=== PATIENT | female | born 1960 | race Caucasian/White ===

== ENCOUNTER → 2018-03-23 | Outpatient (CLI) | payer OTHER ==
[2018-03-23 07:48] LABS: ABSOLUTE BASOPHILS 0.1 thou/uL (0.0-0.2); ABSOLUTE EOSINOPHILS 0.6 thou/uL (0.0-0.7); ABSOLUTE LYMPHOCYTES 2.2 thou/uL (0.8-5.3); ABSOLUTE MONOCYTES 0.6 thou/uL (0.0-1.2); ABSOLUTE NEUTROPHILS 4.2 thou/uL (1.6-8.1); BASOPHILS 0.7 %; EOSINOPHILS 7.3 %; HEMATOCRIT 41.3 % (37.0-47.0); HEMOGLOBIN 13.9 gm/dL (12.0-15.0); LYMPHOCYTES 28.7 %; MCH 30.6 pg (26.0-34.0); MCHC 33.6 g/dL (28.0-37.0); MCV 91.2 fL (80.0-100.0); MONOCYTES 7.5 %; MPV 8.5 fl. (7.2-11.1); NUCLEATED RBCS 0 /100WBC; PLATELET COUNT* 220 thou/uL (150-400); POLYS 55.8 %; RBC 4.53 mil/uL (4.20-5.00); RDW-CV 13.3 % (10.5-14.5); WBC 7.6 thou/uL (4.0-11.0)
[2018-03-23 07:57] LABS: ALBUMIN 3.8 g/dL (3.4-5.0); CALCIUM 9.6 mg/dL (8.5-10.1); CREATININE 1.1 mg/dL (0.6-1.3); POTASSIUM 4.1 mmol/L (3.5-5.1); TOTAL BILIRUBIN 0.3 mg/dL (<0.1-1.0); TOTAL PROTEIN 7.5 g/dL (6.4-8.2)
== END ==
LOC: M.LAB 07:26
PROVIDERS: Specialist
DX: Z01.818 Encounter for other preprocedural examination (principal); I10 Essential (primary) hypertension; M06.4 Inflammatory polyarthropathy; M10.00 Idiopathic gout, unspecified site; Z87.898 Personal history of other specified conditions

== ENCOUNTER 2019-12-27 06:09 | Inpatient (IN) | payer OTHER ==
[2019-12-12 10:46] LABS: ABSOLUTE BASOPHILS 0.1 thou/uL (0.0-0.2); ABSOLUTE EOSINOPHILS 0.8 thou/uL (0.0-0.7); ABSOLUTE LYMPHOCYTES 2.5 thou/uL (0.8-5.3); ABSOLUTE MONOCYTES 0.7 thou/uL (0.0-1.2); ABSOLUTE NEUTROPHILS 5.6 thou/uL (1.6-8.1); BASOPHILS 1.3 %; EOSINOPHILS 8.1 %; HEMATOCRIT 41.7 % (37.0-47.0); HEMOGLOBIN 14.4 gm/dL (12.0-15.0); LYMPHOCYTES 25.6 %; MCH 30.7 pg (26.0-34.0); MCHC 34.4 g/dL (28.0-37.0); MCV 89.2 fL (80.0-100.0); MONOCYTES 7.1 %; MPV 8.3 fl. (7.2-11.1); NUCLEATED RBCS 0 /100WBC; PLATELET COUNT* 254 thou/uL (150-400); POLYS 57.9 %; RBC 4.68 mil/uL (4.20-5.00); RDW-CV 13.2 % (10.5-14.5); WBC 9.6 thou/uL (4.0-11.0)
[2019-12-12 10:56] LABS: APTT 25.2 Seconds (25.0-31.3)
[2019-12-12 10:59] LABS: CALCIUM 9.3 mg/dL (8.5-10.1); POTASSIUM 3.8 mmol/L (3.5-5.1); TOTAL BILIRUBIN 0.3 mg/dL (<0.1-1.0); TOTAL PROTEIN 8.1 g/dL (6.4-8.2)
[2019-12-12 11:53] LABS: ESR (SEDRATE) 20 mm/hr (0-30)
[2019-12-12 23:11] LABS: GLYCOHEMOGLOBIN (HGB A1C) 5.7 % (4.8-5.6)
--- NOTE | 2019-12-25 13:43 | EKG ---
[place] [address] ELECTROCARDIOGRAM REPORT Name: QUITNON HALL Room: [facility]#: [id number] Admission: Attend Phys: Jerson Velasco DO Discharge: Date of : 64 Report #: [id number] THIS REPORT FOR: //name// [facility] Test Date: 2019-12-12 Test Time: 09:14:19 Pat Name: QUINTON HALL Department: Room: Gender: F Project Safety Manager: DAYNA : 1960 Requested By: Jerson Velasco Order Number: [id number] Reading MD: Ochoa Villegas Measurements Intervals [place] Rate: 87 P: 46 [place]: 159 QRS: -25 QRSD: 98 T: 59 QT: 374 QTc: 450 Interpretive Statements Sinus rhythm Borderline left axis deviation Low voltage, precordial leads No previous ECG available for comparison Electronically Signed On 12-12-2019 13:15:55 CAR MOVER by Ochoa Villegas [email or web address] <ELECTRONICALLY SIGNED> By: Ochoa Villegas MD, [facility] 12/12/19 1315 0914 3 Ochoa Villegas MD, [facility] /EPI
[~2019-12-27] VITALS: Ht 160 cm; Wt 113.4 kg
--- NOTE | ~2019-12-27 | OP ---
[address] [address] OPERATIVE REPORT Name: QUINTON HALL Room: [address] IN .R.#: [id number] Admission: 12/27/19 Attend Phys: Jose Alvares Discharge: Date of : 64 Report #: [id number] THIS REPORT FOR: //name// cc: Bobby Ambrose Steve T. DO ~ THIS REPORT FOR: //name// CC: Jerson Allen DATE OF SERVICE: 12/27/2019 PREOPERATIVE DIAGNOSIS: Primary osteoarthritis, left hip. POSTOPERATIVE DIAGNOSES: 1. Primary osteoarthritis, left hip. 2. Morbid obesity, BMI greater than 40. PROCEDURE: Left total hip arthroplasty via direct anterior approach with increased complexity due to morbid obesity. SURGEON: Jerson Velasco DO DOCUMENT PREPARATION SPECIALIST: Brice Melendez DO SECOND ASSIST: Natalee Martínez DO ANESTHESIA: General with local periarticular block. FLUIDS: Lactated Ringer's. ANTIBIOTICS: 2 gram Ancef IV preoperatively. DRAINS: None. SPECIMENS: None. ESTIMATED BLOOD LOSS: 300 mL. COMPLICATIONS: None. ORTHOPEDIC IMPLANTS: Biomet G7 54 mm acetabular shell, 36 mm inner diameter, E1 high wall polyethylene liner, two 6.5 mm bone screws, both 20 mm in length, a 36 mm outer diameter, -3 mm neck length, modular ceramic head, a size 9 standard offset Taperloc complete stem. [address] [address] OPERATIVE REPORT Name: QUINTON HALL Room: [address] ..#: [id number] Admission: 12/27/19 Attend Phys: Jose Alvares Discharge: Date of : 64 Report #: [id number] Other 1 gram of tranexamic acid IV preoperatively. HISTORY: The patient is a 59-year-old female with longstanding history of left hip pain. She has known advanced osteoarthritis, left hip. She has failed nonoperative treatments. Radiographs show [id number] articulation, subchondral sclerosis, periarticular osteophytes. She presents today for elective left total hip arthroplasty with direct anterior approach. Risks, benefits, complications, indications, alternatives were discussed. She has voiced understanding, signed consent and elected to proceed. Risks include but are not limited to fracture, infection, neurovascular injury, continued pain, loss of motion, need for subsequent revision surgery, leg length inequality, instability, dislocation of left hip joint, DVT, PE, GA, stroke, and even . DESCRIPTION OF PROCEDURE: The patient was taken to the operative suite, placed in supine position, given the benefit of a general anesthetic, placed on a [place] table against perineal post. Both feet were placed in traction boots. Left lower extremity was sterilely prepped and draped in the usual fashion. Proper operative sites confirmed with standard timeout technique. A direct anterior approach was taken to the left hip. Lateral circumflex vessels were identified, cauterized and incised. Anterior capsule was exposed. It was treated with Aquamantys and an anterior capsulectomy was performed. A femoral neck cut was made with an oscillating saw. Utilizing a napkin ring technique, the head and neck were removed. Retractors were repositioned for acetabular exposure. Labral debridement was performed with Bovie knife and then reaming was initiated up in sequential fashion to a size 53 reamer. C-arm fluoroscopic images confirmed appropriate depth and circumference of reaming. Thorough irrigation showed circumferential punctate bleeding. I then implanted the above-mentioned acetabular shell in a press-fit fashion under C-arm fluoroscopic guidance, two 6.5 mm bone screws were placed at this time for additional acetabular fixation, and the above-mentioned polyethylene liner was implanted. I turned my attention to the proximal femur. Appropriate capsular releases were performed along with leg positioning and the external elevating hook to [place] table. I was able to achieve excellent proximal femoral exposure. Intramedullary canal was accessed with a rat tail rasp, and then broaching was initiated up in sequential fashion to a size 9 broach, which was left in place for trialing. Trialing of a standard offset -3 mm neck length construct showed excellent intraoperative stability. C-arm fluoroscopic images confirmed appropriate implant placement and sizing as well as leg length and offset. The hip was dislocated, trials were removed. Thorough irrigation was performed. Final stem was implanted in press-fit fashion and the final head was impacted on the [place] taper. The hip was reduced. Intraoperative stability checks were excellent. Final C-arm fluoroscopic images confirmed appropriate implant placement sizing as well as leg length and offset. Thorough irrigation was again performed. Hemostasis shown to be appropriate. Periarticular blocks utilized containing Marcaine, morphine, Toradol, epinephrine and normal saline. Tensor fascia was closed with [address] [place] [address] OPERATIVE REPORT Name: QUINTON HALL Room: [address] IN [facility].#: [id number] Admission: 12/27/19 Attend Phys: Jose Alvares Discharge: Date of : 64 Report #: [id number] a #2 Quill suture in a running fashion. Subcuticular closure was performed with 2-0 Vicryl in simple inverted interrupted fashion. Skin was closed with running 3-0 subcuticular Stratafix suture with Dermabond on the skin. Sterile dressings were applied. The patient tolerated the procedure well. All sponge and needle counts were correct x 2. The patient was taken to recovery room in stable condition. Arianna Velasco DO, attest that I was present and scrubbed in throughout the entirety of the case excluding skin closure. By: [id number] Velasco DO /nt
[~2019-12-27 06:09] MED LIST: ALLOPURINOL 10100 M3 PO; ASPIR 8181 M1 PO; CALCIUM500 MG PO; COZAAR 25 MG TA25 M1 PO; EFFEXOR XR75 MG PO; EYE OMEGA ADVA1 EACH PO; FISH OIL 1,0001 EAC9 PO; LOSARTAN-HCTZ1 EAC3 PO; MAGNESIUM100 MG PO; MULTI VITAMIN1 EACH PO; NAPROSYN500 M1 PO; OMEPRAZOLE40 MG PO; SIMVASTATIN80 MG PO; TRIPLE FLEX CA1 EACH PO; VITAMIN D35000 UNI2 PO
--- NOTE | 2019-12-27 15:00 | NUR ---
PT.DROWSY. HAD SURGERY TODAY. SHE SAID SHE HAS A FRONT WHEEL WALKER AT HOME AND SHOWER BENCH. SHE LIVES ALONE. WILL BE STAYING WITH SON AT DISCHARGE. SHE IS NORMALLY INDEPENDENT AND WORKS. CM CALLED IN ELIQUIS PRESCRIPTION TO [facility] [phone]. NURSING TO CALL BACK FOR COPAY. IF HOME HEALTH ORDERED, CALL [facility]. THEY CAN SET UP FOR HER INSURANCE. [phone] .
[2019-12-27 16:00] VITALS: BP 112/71
--- NOTE | 2019-12-27 18:34 | NUR ---
PT A&Ox4. VITALS STABLE. IV PATENT, FLUIDS INFUSING. UP WITH 1 USING GAIT BELT AND WALKER TO RESTROOM. PT URINATED. PAIN PARTIALLY CONTROLLED WITH OXY IR. DENIED NAUSEA. TOLERATING DIET. FALL PRECAUTIONS IN PLACE. DRESSING C/D/I. WILL CONTINUE TO MONTIOR.
[2019-12-27 20:49] VITALS: BP 124/67
[2019-12-28] VITALS: BP 100/59
[2019-12-28 03:00] VITALS: BP 100/56
[2019-12-28 04:41] LABS: HEMATOCRIT 32.8 % (37.0-47.0); HEMOGLOBIN 11.1 gm/dL (12.0-15.0)
--- NOTE | 2019-12-28 05:06 | NUR ---
PATIENT UP TO RESTROOM WITH WALKER AND ASSIST X 1. SHE REQUESTED PAIN MEDICATION ONCE IN BEGINNING OF SHIFT OXYCODONE 10 MG. APPLIED ICE PACKS TO HIP AND REPOSITIONED FOR COMFORT. SHE RECEIVED ALL FLUIDS AND MEDS SCHEDULED. PLAN TO WORK WITH PT TODAY. PAIN IS MANAGED AND SHE IS TOLERATING AMBULATING. WILL CONTINUE TO FOLLOW PLAN OF CARE.
[2019-12-28 09:30] VITALS: BP 106/63
--- NOTE | 2019-12-28 18:33 | NUR ---
PATIENT PLEASANT AND COOPERATIVE THRU SHIFT. SEE MAR. PATIENT COMPLIANT W/ USE OF FWW, GAIT BELT W/ SBA, AMB IN HALLS W/ THERAPY, NOTED SLOW, STEADY GAIT. PATIENT EATING WELL. DRSG TO LT HIP INC AREA NOTED WNL, CDI. ICE PACK USED FOR SITE PRN. HRLY ROUNDS DONE. CURRENTLY RESTING IN BED, FAMILY MEMBER PRESENT AT BEDSIDE. CALL LIGHT IN REACH. HOB UP TO PATIENT COMFORT. DENIES OTHER NURSING NEEDS AT THIS TIME. TV ON. RM DARKENED. UP TO BR, URINATING W/O DIFF THIS SHIFT. ~TJRN
[2019-12-28 20:45] VITALS: BP 96/55
[2019-12-29] VITALS: BP 120/64
[2019-12-29 04:00] VITALS: BP 97/57
[2019-12-29 04:06] LABS: HEMATOCRIT 30.5 % (37.0-47.0); HEMOGLOBIN 10.4 gm/dL (12.0-15.0)
--- NOTE | 2019-12-29 05:51 | NUR ---
Alert and oriented x 4. L hip mepilex dressing is dry and intact. She is up with assist to bathroom with stand by assist and walker. She hasn't had any pain med this shift. She has slept well.
[2019-12-29] MEDS ORDERED: OXYCODONE HCL5 M1 PO (08:40)
[2019-12-29] MEDS ORDERED: TRAMADOL 50 MG50 MG PO (08:40)
[2019-12-29] MEDS ORDERED: ELIQUIS5 MG PO (08:40)
[2019-12-29 17:47] VITALS: BP 97/57
[2019-12-29 18:45] VITALS: BP 97/57
== END 2019-12-29 08:45 | disposition home health service (06) | DRG 470 ==
LOC: M.TBA 06:09 → M.PRE 07:27 → M.TBA 10:02 → M.ORTHSURG 11:50 → M.PRE 12:07 → M.ORTHSURG 12-29 08:45
PROVIDERS: Orthopaedic Surgery; ADMIT Internal Medicine
PROC: 0SRB03A Replacement of Left Hip Joint with Ceramic Synthetic Substitute, Uncemented, Open Approach (ICD-10-PCS; principal; 2019-12-27)
DX: M16.12 Unilateral primary osteoarthritis, left hip (principal); Z68.41 Body mass index [BMI] 40.0-44.9, adult; K21.9 Gastro-esophageal reflux disease without esophagitis; E78.00 Pure hypercholesterolemia, unspecified; M10.9 Gout, unspecified; I10 Essential (primary) hypertension; E78.5 Hyperlipidemia, unspecified; M06.4 Inflammatory polyarthropathy; F41.9 Anxiety disorder, unspecified; F32.9 Major depressive disorder, single episode, unspecified; E66.01 Morbid (severe) obesity due to excess calories; Z79.899 Other long term (current) drug therapy; Z79.82 Long term (current) use of aspirin; Z88.8 Allergy status to other drugs, medicaments and biological substances